=== PATIENT | female | born 1985 | race African-American/Black ===

== ENCOUNTER 2016-03-28 22:58 | Emergency (ER) | payer OTHER ==
[2016-03-28 23:14] VITALS: BP 130/73
[2016-03-28] MEDS ORDERED: PHENERGAN WITH CODEINE LIQUID PO ONE (23:47)
[2016-03-28] MEDS ORDERED: MOTRIN PO ONE (23:47)
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
== END 2016-03-28 23:55 | disposition home or self-care (01) ==
LOC: P.ED 22:58
DX: T14.8 Other injury of unspecified body region (principal); J06.9 Acute upper respiratory infection, unspecified; R51 Headache; M79.1 Myalgia; M79.604 Pain in right leg; Z87.440 Personal history of urinary (tract) infections; Y04.2XXA Assault by strike against or bumped into by another person, initial encounter
CPT/HCPCS: 99282